=== PATIENT | female | born 1940 | race African-American/Black ===

== ENCOUNTER 2017-03-09 23:26 | Emergency (ER) | payer OTHER ==
[~2017-03-09] VITALS: Ht 167.6 cm; Wt 54.4 kg
[~2017-03-09 23:26] MED LIST: ADULT LOW DOSE81 MG PO; COREG; LISINOPRIL20 MG PO; NORCO 5-325 TA1 EACH PO; SYNTHROID25 MCG PO; [UNRECOGNIZED DRUG - OTHER]
[2017-03-09] MEDS ORDERED: ZOLPIDEM TARTRA10 MG PO (23:53)
[2017-03-10] MEDS ORDERED: ANUSOL-HC25 MG RECTAL (02:00)
[2017-03-10] MEDS ORDERED: HYDROCORTISONE30 G9 RECTAL (02:00)
== END 2017-03-10 02:09 | disposition home or self-care (01) ==
LOC: ER 23:26
DX: L30.8 Other specified dermatitis (principal); R19.7 Diarrhea, unspecified; I10 Essential (primary) hypertension; E03.9 Hypothyroidism, unspecified; E78.00 Pure hypercholesterolemia, unspecified; M19.90 Unspecified osteoarthritis, unspecified site; Z90.710 Acquired absence of both cervix and uterus

== ENCOUNTER → 2018-12-09 | Outpatient (CLI) | payer OTHER ==
[~2018-12-09] MED LIST changes: +ANUSOL-HC25 MG RECTAL; +HYDROCORTISONE30 G9 RECTAL; +ZOLPIDEM TARTRA10 MG PO
== END ==
LOC: ULTRA 09:09
DX: E04.9 Nontoxic goiter, unspecified (principal); E05.90 Thyrotoxicosis, unspecified without thyrotoxic crisis or storm

== ENCOUNTER → 2019-02-18 | Outpatient (CLI) | payer OTHER ==
--- NOTE | 2019-02-24 13:07 | PATH ---
[facility] [place] [address] PATHOLOGY RPT PROCEDURE Name: PATIENCE VARMA Room #: REG [facility]#: [id number] Admission: 02/18/19 Date of : 40 Discharge: Report #: [id number] Path Case #: [id number] Note [facility] Accession Number: [id number] TESTS RESULT FLAG UNITS REF RANGE LAB Clinician Provided Cytology Information No. of containers..01 Other (Miscellaneous) Source: RT THYROID FNA DIAGNOSIS: 02 RIGHT THYROID, FNA ATYPIA OF UNDETERMINED SIGNIFICANCE. ABUNDANT RED BLOOD CELLS ARE PRESENT. COLLOID IS PRESENT. THIS INTERPRETATION INCLUDES EVALUATION OF A CELL BLOCK. Comment: Examination shows watery colloid, macrofollicles and a few Hurthle cells. Nuclear atypia is identified within a few groups. Definitive features of papillary thyroid carcinoma are not identified. The atypia may be reactive; however, the differential diagnosis includes a follicular lesion with cytologic atypia or Hurthle cell lesion. The RNA retain vial is sent for molecular analysis and the results will be reported in an addendum. Please note sample may not be entirely registered representative. Correlate clinically and follow-up as indicated. Dr. Damian Alejandro has seen registered representative slides of this case and concurs with the interpretation. Pathologist ICD10: 02 E04.1 Signed out by: Merary Calle MD, Pathologist NPI- [id number] Performed by: Sury Carrasquillo, Call Or Contact Centre Team Leader ([facility]) Gross description: 01 19ML, RED, CLEAR /LCS 02/18/2019 1419 Local FLAG LEGEND: L-Low Normal,H-High Normal,LL-Alert Low,HH-Alert High <-Panic Low,>-Panic High,A-Abnormal,AA-Critical Abnormal Performed at: [facility] [address] [place] [address] Jeff Persaud MD, 02 [facility] [address] [address] PATHOLOGY RPT PROCEDURE Name: PATIENCE VARMA Room #: REG [facility].#: [id number] Admission: 02/18/19 Date of : 40 Discharge: Report #: [id number] Path Case #: [id number] [address] [facility] [place] [address] Merary Calle MD, Specimen Comment: A courtesy copy of this report has been sent to [phone] Specimen Comment: [id number] Specimen Comment: Report sent to Specimen Comment: A duplicate report has been generated due to demographic updates. Performed at: 01 [facility] [address] [facility], [place], [place] [id number] MD Jeff Persaud MD Phone: [phone]
== END | disposition home or self-care (01) ==
LOC: ULTRA 09:18
DX: E04.1 Nontoxic single thyroid nodule (principal); Z98.890 Other specified postprocedural states; Z79.899 Other long term (current) drug therapy; Z79.82 Long term (current) use of aspirin

== ENCOUNTER 2019-04-23 08:10 | Inpatient (IN) | payer OTHER ==
--- NOTE | 2019-04-22 12:43 | EKG ---
[facility] [place] [address] ELECTROCARDIOGRAM REPORT Name: PATIENCE VARMA Room #: PRE IN M.R.#: [id number] Admission: Attend Phys: Santos Chapman MD Discharge: Date of : 40 Report #: [id number] THIS REPORT FOR: cc: Maxime Pennington David J. DO Lundgren, Craig H. MD [facility] THIS REPORT FOR: //name// [facility] Test Date: 2019-04-21 Test Time: 09:29:46 Pat Name: PATIENCE VARMA Department: Room: Gender: F Lead Tinner: ANITA WHITING : 1940 Requested By: Santos Chapman Order Number: [id number] MD: Cruz Jimenez Measurements Intervals [place] Rate: 69 P: 77 SC: 142 QRS: -60 QRSD: 161 T: 145 QT: 439 QTc: 471 Interpretive Statements Sinus rhythm Left bundle branch block Compared to ECG 10/31/2006 08:14:04 No significant change was found Electronically Signed On 04-21-2019 17:29:23 HEAD OF SCIENCE by Cruz Jimenez [email or web address] <ELECTRONICALLY SIGNED> By: Cruz Jimenez MD, [facility] 04/21/19 1729 0929 0929 Cruz Jimenez MD, [facility] /EPI
[~2019-04-23] VITALS: Ht 165.1 cm; Wt 52.6 kg
[~2019-04-23 08:10] MED LIST changes: +ALENDRONATE SOD70 MG PO; +CARVEDILOL6.25 M1 PO; +CENTRUM SILVER1 EAC4 PO; +IBUPROFEN 200200 M1 PO; +LIPITOR 40 MG T40 M1 PO; +LOSARTAN POTASS50 MG PO
[2019-04-28 07:26] VITALS: BP 136/51
[2019-04-28 15:30] LABS: CREATININE 0.9 mg/dL (0.6-1.0); PHOSPHORUS 3.4 mg/dL (2.5-4.9)
[2019-04-28 17:31] VITALS: BP 174/77
[2019-04-28 20:07] VITALS: BP 169/65
--- NOTE | 2019-04-28 23:07 | NUR ---
PT SITTING UP IN BED, TALKING WITH FAMILY. PT CALLS FOR ASSIST WITH AMBULATION TO RESTROOM. ALARM ON. PT DECLINED CONTINUING IVF. PT REQUESTING CL DIET ITEMS AND PROVIDED. PT HAS PERIORBITAL EDEMA. SURGICAL STERI STRIPS ON THROAT DRY AND INTACT. PT NOT C/O DISCOMFORT.
[2019-04-29 00:03] VITALS: BP 152/63
[2019-04-29 04:03] VITALS: BP 142/55
[2019-04-29 07:14] VITALS: BP 153/61
[2019-04-29] MEDS ORDERED: OXYCODONE HCL 55 MG PO (08:17)
[2019-04-29] MEDS ORDERED: COLACE 100 MG100 MG PO (08:18)
[2019-04-29] MEDS ORDERED: CALTRATE-600 W1 EACH PO (08:18)
[2019-04-29] MEDS ORDERED: MIRALAX17 GM PO (08:19)
[2019-04-29] MEDS ORDERED: ACETAMINOPHEN325 M1 PO (08:19)
[2019-04-29 08:22] LABS: HEMATOCRIT 31.6 % (37.0-47.0); HEMOGLOBIN 10.1 gm/dL (12.0-15.0); MCH 23.8 pg (26.0-34.0); MCHC 31.9 g/dL (28.0-37.0); MCV 74.6 fL (80.0-100.0); RBC 4.23 mil/uL (4.20-5.00); RDW 15.5 % (10.5-14.5); WBC 7.3 thou/uL (4.0-11.0)
[2019-04-29 08:52] LABS: ALBUMIN 3.4 g/dL (3.4-5.0); CALCIUM 9.5 mg/dL (8.5-10.1); CREATININE 0.9 mg/dL (0.6-1.0); MAGNESIUM 1.8 mg/dL (1.8-2.4); PHOSPHORUS 3.2 mg/dL (2.5-4.9); POTASSIUM 3.8 mmol/L (3.5-5.1)
--- NOTE | 2019-04-29 09:41 | NUR ---
Nutrition: Pt assessed due to RD consult received for poor intake. Is s/p total thyroidectomy on 04/28 for R thyroid nodule and recurrent Graves' hyper- thyroidism. Pt states her last meal was prior to midnight evening of 04/27 and she did not eat again until last night when diet was advanced to clears s/p surgery. < 24 hrs without PO. Prior to this day, no po intake issues. Wt incredibly stable. Pt reports losing 50# on her own and has kept extra wt off for 40 yrs. Very picky about foods - doesn't really eat bread, sugar-free items or fatty meats. Helped modify lunch to pt approved choices. Eats very healthy. Within 4# of reported wt > 2 years ago. At 116# and healthy BMI of 19.3 kg/m2. No further nutrition concerns/needs. Low nutrition risk.
[2019-04-29 11:22] VITALS: BP 154/68
[2019-04-29 13:04] VITALS: BP 154/68
--- NOTE | 2019-04-30 15:08 | PATH ---
[facility] [place] [address] PATHOLOGY RPT PROCEDURE Name: AVANIGIOVANNA TONG Room #: 356-P DIS IN M.R.#: [id number] Admission: 04/28/19 Date of : 40 Discharge: 04/29/19 Report #: [id number] Path Case #: [id number] [facility] Accession Number: [id number] . 01 Material submitted: . thyroid gland - TOTAL THYROID . 01 Clinical history: . Thyrotoxicosis with diffuse goiter without thyrotoxic crisis or storm . 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 - Mild chronic lymphocytic thyroiditis. - Negative for malignancy. . (IUV:mml; 04/30/2019) QLM 04/30/2019 1246 Local . 02 Comment: Dr. Taras Delgado has seen account retention representative slides of this case and concurs with my diagnosis. . (IUV:mml; 04/30/2019) . 02 Electronically signed: . Merary Calle MD, Pathologist NPI- [id number] . 01 Gross description: . The specimen is received in formalin, labeled "Giovanna Perez, total thyroid" and consists of an 11 g total thyroidectomy. The capsule is pink brown with thin adhesions and partial disruption of the posterior aspect. There are numerous blue clips scattered across the external surface. The right lobe measures 4.7 x 2.3 x 1.3 cm, left lobe (3.3 x 2.3 x 0.5 cm), and isthmus (1.5 cm in length and 1.8 cm in width). Posterior is inked black, right anterior blue, and left anterior yellow. The right lobe is sectioned from superior to inferior revealing a pink-trujillo nodule at the inferior pole which extends to the isthmus measuring 2.5 x 1.5 cm which abuts the capsule. The nodule shows hemorrhagic cut surfaces. The uninvolved parenchyma is soft brown-red with no additional gross lesions. . The left lobe is sectioned from superior to inferior revealing a brown red soft parenchyma and no mass lesions. The specimen is entirely submitted as follows: [address] [address] PATHOLOGY RPT PROCEDURE Name: GIOVANNA PEREZ TONG Room #: 356-P DIS IN M.R.#: [id number] Admission: 04/28/19 Date of : 40 Discharge: 04/29/19 Report #: [id number] Path Case #: [id number] . A1: Right lobe superior pole A2-A7: Right lobe, entire from superior to inferior A8: Rest of nodule at isthmus A9-A12: Entire left lobe from superior to inferior (SDY; 04/28/2019) SYU/SYU 04/28/2019 1622 Local . 02 Pathologist provided ICD-10: D34, E06.3 . 02 CPT . [id number] Specimen Comment: Report sent to Performed at: [address] [facility], [place], [place] [id number] MD Jeff Persaud MD Phone: [phone] Performed at: [address] [id number] MD Merary Calle MD Phone: [phone]
== END 2019-04-29 14:44 | disposition home or self-care (01) | DRG 627 ==
LOC: PRE 08:10 → TBA 15:24 → PRE 15:51 → TBA 04-28 05:59 → 3W 04-28 05:59 → PRE 04-28 06:42 → TBA 04-28 11:24 → PRE 04-28 13:54 → 3W 04-28 17:42 → ENTRNSPT 04-29 14:21 → EDTRNSPTSTS 04-29 14:24 → 3W 04-29 14:44
PROVIDERS: ADMIT Surgery
PROC: 0GTK0ZZ Resection of Thyroid Gland, Open Approach (ICD-10-PCS; principal; 2019-04-28)
DX: E05.20 Thyrotoxicosis with toxic multinodular goiter without thyrotoxic crisis or storm (principal); E04.1 Nontoxic single thyroid nodule; M19.90 Unspecified osteoarthritis, unspecified site; Z79.82 Long term (current) use of aspirin; Z79.891 Long term (current) use of opiate analgesic; Z79.899 Other long term (current) drug therapy
CPT/HCPCS: 10879; 50010; 50101; 50386; 50417; 51636; 52190; 56524; 56526; 56760; 62110; 62900; 70005